=== PATIENT | female | born 1960 ===

== ENCOUNTER 2023-07-06 17:42 | Observation (INO) | payer MEDICARE, MEDICAID ==
[~2023-07-06] VITALS: Ht 157.5 cm; Wt 101.5 kg
[2023-07-06] MEDS ORDERED: BENZONATATE 100 MG CAPSULE PO PRN (18:30)
[2023-07-06] MEDS ORDERED: ENOXAPARIN 40 MG/0.4 ML SYRINGE SC SCH (18:30)
[2023-07-06] MEDS ORDERED: ONDANSETRON INJECTION 4 MG/2 ML (SDV) IV PRN (18:30)
[2023-07-06] MEDS ORDERED: PATIENT MAY USE OWN MEDS, ALL PO SCH (18:30)
[2023-07-06] MEDS ORDERED: ANTACID SUSPENSION 30 ML UDC PO PRN (18:30)
[2023-07-06] MEDS ORDERED: MELATONIN 3 MG TABLET PO PRN (18:30)
[2023-07-06] MEDS ORDERED: MILK OF MAGNESIA 400 MG/5 ML 30 ML UDC PO PRN (18:30)
[2023-07-06 21:20] VITALS: BP 148/65
[2023-07-06] MEDS: FUROSEMIDE INJECTION 40 MG/4 ML VIAL IV SCH (21:46)
[2023-07-06] MEDS: HYDROcodone/ACETAMINOPHEN 5 MG/325 MG TABLET PO PRN (22:53)
[2023-07-06] MEDS: HYDROCORTISONE 20 MG TABLET PO SCH (22:53)
[2023-07-06 23:40] VITALS: BP 149/82
[2023-07-07 03:30] VITALS: BP 123/79
[2023-07-07] MEDS: HYDROcodone/ACETAMINOPHEN 5 MG/325 MG TABLET PO PRN ×3 (03:39→20:12)
[2023-07-07 07:56] LABS: HEMATOCRIT 33 % (35-52); HEMOGLOBIN 10.7 g/dL (11.5-16.0); MEAN CORPUSCULAR HEMOGLOBIN 29 pg (25-34); MEAN CORPUSCULAR HGB CONC 32 g/dL (32-36); MEAN CORPUSCULAR VOLUME 90 fL (80-99); MEAN PLATELET VOLUME 10.2 fL (9.0-12.2); PLATELET COUNT 197 10^3/uL (130-400); WHITE BLOOD COUNT 5.9 10^3/uL (4.3-11.0)
[2023-07-07 08:08] LABS: ALBUMIN 3.1 GM/DL (3.2-4.5); POTASSIUM 3.8 MMOL/L (3.6-5.0)
[2023-07-07 08:10] LABS: CALCIUM 8.3 MG/DL (8.5-10.1)
[2023-07-07 08:11] LABS: TOTAL PROTEIN 5.6 GM/DL (6.4-8.2)
[2023-07-07 08:12] LABS: BILIRUBIN,TOTAL 0.4 MG/DL (0.1-1.0)
[2023-07-07 08:14] LABS: CREATININE SERUM 1.08 MG/DL (0.60-1.30)
[2023-07-07 08:25] VITALS: BP 132/78
--- NOTE | 2023-07-07 08:26 | Consultation-Cardiology ---
HPI-Cardiology Cardiology Consultation Date of Consultation 07/07/23 Date of Admission Time Seen by Provider: 08:20 Indication: Congestive heart failure HPI 63-year-old lady with history of congestive heart failure, was discharged from [facility] earlier this week after hospitalization for heart failure. Patient reporting that she had a stress test last month at [facility] and it did not show any ischemia did not require any cardiac catheterization, patient was diuresed and improved somewhat but continued to have some shortness of breath, return to the emergency room with increasing dyspnea, [facility] was on diversion and she was transferred to our hospital. Patient uses oxygen at home at night. Was hypoxemic. Reporting improvement in the pedal edema. No chest pain was reported Home Medications & Allergies Allergies: Coded Allergies: No Known Drug Allergies (Unverified , 07/07/23) Home Medication List Reviewed: Yes OLC-Dyegyv-Faqboy Hx Patient Social History Marital Status: single Smoking Status: Former Smoker Alcohol Use?: No Past Medical History Discussed below Family Medical History Significant Family History: No Pertinent Family Hx, Heart Disease Review of Systems-General Review of Systems Constitutional: no symptoms reported, see HPI, malaise EENTM: see HPI, no symptoms reported Respiratory: see HPI, cough, dyspnea on exertion; No hemoptysis; orthopnea; No phlegm; short of breath; No stridor, No wheezing, No other Cardiovascular: see HPI; No chest pain; edema; No Hx of Intervention, No palpitations, No syncope, No vascular heart diseas, No other Gastrointestinal: no symptoms reported, see HPI Genitourinary: no symptoms reported, see HPI Musculoskeletal: no symptoms reported, see HPI Skin: no symptoms reported, see HPI Psychiatric/Neurological: No Symptoms Reported, See HPI Reviewed Test Results Reviewed Test Results Lab Laboratory Tests Test 07/07/23 05:51 07/07/23 07:48 Range/Units Glucometer 79 70-110 MG/DL White Blood Count 5.9 4.3-11.0 10^3/uL Red Blood Count 3.68 L 3.80-5.11 10^6/uL Hemoglobin 10.7 L 11.5-16.0 g/dL Hematocrit 33 L 35-52 % Mean Corpuscular Volume 90 80-99 fL Mean Corpuscular Hemoglobin 29 25-34 pg Mean Corpuscular Hemoglobin Concent 32 32-36 g/dL Red Cell Distribution Width 13.5 10.0-14.5 % Platelet Count 197 130-400 10^3/uL Mean Platelet Volume 10.2 9.0-12.2 fL Sodium Level 138 135-145 MMOL/L Potassium Level 3.8 3.6-5.0 MMOL/L Chloride Level 104 98-107 MMOL/L Carbon Dioxide Level 27 21-32 MMOL/L Anion Gap 7 5-14 MMOL/L Blood Urea Nitrogen 24 H 7-18 MG/DL Creatinine 1.08 0.60-1.30 MG/DL Estimat Glomerular Filtration Rate 57 BUN/Creatinine Ratio 22 Glucose Level 88 70-105 MG/DL Calcium Level 8.3 L 8.5-10.1 MG/DL Corrected Calcium 9.0 8.5-10.1 MG/DL Total Bilirubin 0.4 0.1-1.0 MG/DL Aspartate Amino Transf (AST/SGOT) 10 5-34 U/L Alanine Aminotransferase (ALT/SGPT) 11 0-55 U/L Alkaline Phosphatase 73 40-136 U/L Troponin I 0.029 H <0.028 NG/ML Total Protein 5.6 L 6.4-8.2 GM/DL Albumin 3.1 L 3.2-4.5 GM/DL Physical Exam Physical Exam Vital Signs Vital Signs - First Documented 07/06/23 21:20 Temp 36.0 Pulse 60 Resp 18 B/P (MAP) 148/65 (92) Pulse Ox 97 O2 Delivery Nasal Cannula O2 Flow Rate 2.00 Capillary Refill : Height, Weight, BMI Height: '" Weight: lbs. oz. kg; 41.84 BMI Method: General Appearance: No Apparent Distress, WD/WN Eyes: Bilateral Eye Normal Inspection, Bilateral Eye PERRL, Bilateral Eye EOMI HEENT: PERRL/EOMI, TMs Normal, Normal ENT Inspection, Pharynx Normal, Moist Mucous Membranes Neck: Full Range of Motion, Normal Inspection, Non Tender, Supple, Carotid Bruit Respiratory: Chest Non Tender, Normal Breath Sounds, No Accessory Muscle Use, No Respiratory Distress Cardiovascular: Regular Rate, Rhythm, No Edema, No Gallop, No JVD, No Murmur, Normal Peripheral Pulses Gastrointestinal: Normal Bowel Sounds, No Organomegaly, No Pulsatile Mass, Non Tender, Soft Back: Normal Inspection, No CVA Tenderness, No Vertebral Tenderness Extremity: Normal Capillary Refill, Normal Inspection, Normal Range of Motion, Non Tender, No Calf Tenderness, No Pedal Edema Neurologic/Psychiatric: Alert, Oriented x3, No Motor/Sensory Deficits, Normal Mood/Affect Skin: Normal Color, Warm/Dry Lymphatic: No Adenopathy A/P-Cardiology Admission Diagnosis Shortness of breath Congestive heart failure Hypertension Hyperlipidemia Assessment/Plan Shortness of breath, congestive heart failure, patient had extensive workup done at [facility] I will try to obtain copy of the record Started on diuretics and monitor electrolytes closely. Restart home medication Patient reporting having stress test done at [facility] last month and rep orting that it was negative. Will try to obtain copy of the results Hypertension, restart home medication monitor blood pressure Hyperlipidemia, restart home medication and monitor lipids Diabetes mellitus, followed and managed by primary care physician Hypothyroidism, followed and managed by primary care physician COPD, oxygen dependent using oxygen at home Obesity, BMI 41 LUIS E SMITH MD Jul 07, 2023 08:26
[2023-07-07] MEDS: FUROSEMIDE INJECTION 40 MG/4 ML VIAL IV SCH ×2 (08:31→20:13)
[2023-07-07] MEDS: HYDROCORTISONE 20 MG TABLET PO SCH ×2 (08:31→20:11)
--- NOTE | 2023-07-07 09:01 | Diagnostic Imaging Report ---
INDICATION: Dyspnea and cough. PA and lateral chest obtained at 08:34 a.m. FINDINGS: Heart and mediastinal silhouette are normal in appearance. The lungs show no focal infiltrate. There is a trace of pleural fluid on both sides on the lateral view. IMPRESSION: No focal infiltrate. Trace bilateral pleural effusions. Dictated by: Dictated on workstation # [id number]
--- NOTE | 2023-07-07 09:48 | History & Physical-Hospitalist ---
History of Present Illness HPI/Chief Complaint Patient is a 63-year-old female past medical history of CHF, insulin- dependent diabetes, hypertension who presented to the ER duet o SOB. She was admitted at [facility] earlier this week for CHF and SOB and was DC-ed on 09/04. She states she was still short of breath when she left but was doing ok and when she got home she kept coughing and was hypoxic in the 80s prompting her to seek evaluation in the ER. She was found to have an elevated BNP of 5900 and mild troponin elevation (though stable for her over the last 5 checks). She was transferred her for cardiology evaluation. She reports doing a little better today but still coughing. She is currently off oxygen. She states the cough has been going on for over a week and has been tested for COVID and the flu multiple times and was negative. Source: patient Date Seen 07/07/23 Time Seen by a Provider: 09:00 Attending Physician No,Local Physician PCP Admitting Physician: Renny Altman MD Attending Physician: Renny Altman MD Referring Physician Date of Admission Jul 06, 2023 at 21:18 Home Medications & Allergies Home Medications Reviewed patient Home Medication Reconciliation performed by pharmacy medication reconciliations obstetrics technician and/or nursing. Patients Allergies have been reviewed. Allergies Allergies Coded Allergies No Known Drug Allergies (Lnjadqczvx90/30/23) Past Jnkjthv-Jsiqgt-Sofnlp Hx Patient Social History Marrital Status: single Tobacco Use?: No Smoking Status: Former Smoker Use of E-Cig and/or Vaping dev: No Substance use?: No Alcohol Use?: No Pt feels they are or have been: No Current Status status: No status: No Advance Directives: No Communicates: Verbally Primary Language: Niuean Preferred Spoken Language: Niuean Is interpretation needed?: No Sensory deficits: Vision impairment Implanted or Applied Medical D: None Family Medical History No Pertinent Family Hx, Heart Disease Review of Systems Constitutional: see HPI Physical Exam Physical Exam Vital Signs Vital Signs - First Documented 07/06/23 21:20 Temp 36.0 Pulse 60 Resp 18 B/P (MAP) 148/65 (92) Pulse Ox 97 O2 Delivery Nasal Cannula O2 Flow Rate 2.00 Capillary Refill : Height, Weight, BMI Height: '" Weight: lbs. oz. kg; 41.84 BMI Method: General Appearance: No Apparent Distress, Obese Respiratory: No Respiratory Distress; No Crackles; Decreased Breath Sounds; No Wheezing Cardiovascular: Regular Rate, Rhythm, No Murmur Gastrointestinal: Normal Bowel Sounds, Soft Extremity: No Calf Tenderness, No Pedal Edema Neurologic/Psychiatric: Alert, Oriented x3, Normal Mood/Affect Results Results/Procedures Labs Laboratory Tests 07/07/23 07:48 07/08/23 08:20 Patient resulted labs reviewed. Imaging: Reviewed Imaging Report Imaging [facility], [place] NAME: TONY ESPARZA MED REC#: [id number] PT STATUS: ADM Ortiz : 1960 PHYSICIAN: LUIS E SMITH MD ADMIT DATE: 07/06/23 Signed Date of Exam:07/07/23 CHEST PA/LAT (2 VIEW) INDICATION: Dyspnea and cough. PA and lateral chest obtained at 08:34 a.m. FINDINGS: Heart and mediastinal silhouette are normal in appearance. The lungs show no focal infiltrate. There is a trace of pleural fluid on both sides on the lateral view. IMPRESSION: No focal infiltrate. Trace bilateral pleural effusions. Dictated by: Dictated on workstation # [id number] Dict: 07/07/23 0859 Trans: 07/07/23 1039 [id number] Interpreted by: BLU CADENA MD Electronically signed by: BLU CADENA MD 07/07/23 1039 Assessment/Plan Admission Diagnosis CHF exacerbation Admission Status: Observation Assessment and Plan CHF exacerbation A-fib HTN Continue Lasix Cardiology consulted, appreciate recs Request records from [facility] Telemetry Wean oxygen as able Add Mucinex MAT protocol IDDMII HLD Hypothyroidism Continue home meds when med rec done DVT ppx: RENNY Boogie MD Jul 07, 2023 09:48
[2023-07-07] MEDS: ENOXAPARIN 40 MG/0.4 ML SYRINGE SC SCH ×2 (10:37→20:14)
[2023-07-07 11:55] VITALS: BP 139/67
[2023-07-07] MEDS ORDERED: guaiFENesin 600 MG TABLET PO NR (13:00)
[2023-07-07] MEDS: inSUlin ASPART 1 UNIT/0.01 ML (PER UNIT) SC SCH ×2 (16:12→20:14)
[2023-07-07] MEDS ORDERED: FURO40TA4 PO (16:14)
[2023-07-07] MEDS ORDERED: ONDA4TAB11 PO (16:14)
[2023-07-07] MEDS ORDERED: ASPI-1238 PO (16:14)
[2023-07-07] MEDS ORDERED: LEVO50TA6 PO (16:14)
[2023-07-07] MEDS ORDERED: PANT40TA52 PO (16:14)
[2023-07-07] MEDS ORDERED: ALLO100T PO (16:14)
[2023-07-07] MEDS ORDERED: DOXY100C5 PO (16:14)
[2023-07-07] MEDS ORDERED: CARV6.252 PO (16:14)
[2023-07-07] MEDS ORDERED: INSU300I SC (16:14)
[2023-07-07] MEDS ORDERED: SPIR25TA5 PO (16:14)
[2023-07-07] MEDS ORDERED: OXYC5TAB PO (16:14)
[2023-07-07] MEDS ORDERED: HYDR-4164 PO ×2 (16:14)
[2023-07-07] MEDS ORDERED: INSU100V SQ (16:14)
[2023-07-07] MEDS ORDERED: ATOR40TA70 PO (16:14)
[2023-07-07 16:21] VITALS: BP 130/61
[2023-07-07] MEDS ORDERED: oxyCODONE IMMEDIATE RELEASE 5 MG TABLET PO PRN (18:00)
[2023-07-07 19:52] VITALS: BP 142/70
[2023-07-07] MEDS: guaiFENesin 600 MG TABLET PO SCH (20:11)
[2023-07-07] MEDS: ASPIRIN enteric coated 81MG TABLET PO SCH (20:11)
[2023-07-07] MEDS: PANTOPRAZOLE 40 MG TABLET PO SCH (20:12)
[2023-07-07] MEDS ORDERED: HYDROCORTISONE 5 MG PO SCH (21:00)
[2023-07-07] MEDS: carvediloL 6.25 MG TABLET PO SCH (21:57)
[2023-07-07 23:34] VITALS: BP 123/73
[2023-07-08] MEDS: HYDROcodone/ACETAMINOPHEN 5 MG/325 MG TABLET PO PRN ×3 (02:17→20:36)
[2023-07-08 03:27] VITALS: BP 110/65
[2023-07-08] MEDS: inSUlin ASPART 1 UNIT/0.01 ML (PER UNIT) SC SCH ×4 (05:04→21:09)
[2023-07-08] MEDS: LEVOTHYROXINE 50 MCG TABLET PO SCH (05:04)
[2023-07-08 07:17] VITALS: BP 138/83
[2023-07-08 08:30] LABS: HEMATOCRIT 34 % (35-52); MEAN CORPUSCULAR HEMOGLOBIN 29 pg (25-34); MEAN CORPUSCULAR HGB CONC 33 g/dL (32-36); MEAN CORPUSCULAR VOLUME 88 fL (80-99); MEAN PLATELET VOLUME 9.9 fL (9.0-12.2); PLATELET COUNT 218 10^3/uL (130-400); WHITE BLOOD COUNT 5.6 10^3/uL (4.3-11.0)
[2023-07-08 08:40] LABS: POTASSIUM 3.5 MMOL/L (3.6-5.0)
[2023-07-08 08:41] LABS: CALCIUM 8.3 MG/DL (8.5-10.1)
[2023-07-08 08:45] LABS: CREATININE SERUM 1.06 MG/DL (0.60-1.30)
[2023-07-08] MEDS ORDERED: NON-FORMULARY MEDICATION 1 EA EA (Doxycycline Hyclate 100 MG) PO SCH (09:00)
[2023-07-08] MEDS ORDERED: NON-FORMULARY MEDICATION 1 EA EA (Hydrocortisone 10 MG) PO SCH (09:00)
[2023-07-08] MEDS: guaiFENesin 600 MG TABLET PO SCH ×2 (09:11→20:22)
[2023-07-08] MEDS: carvediloL 6.25 MG TABLET PO SCH ×2 (09:12→20:22)
[2023-07-08] MEDS: HYDROCORTISONE 20 MG TABLET PO SCH ×2 (09:12→20:22)
[2023-07-08] MEDS: SPIRONOLACTONE 25 MG TABLET PO SCH (09:12)
[2023-07-08] MEDS: FUROSEMIDE INJECTION 40 MG/4 ML VIAL IV SCH ×2 (09:12→20:22)
[2023-07-08] MEDS: PANTOPRAZOLE 40 MG TABLET PO SCH ×2 (09:12→20:22)
[2023-07-08] MEDS: ENOXAPARIN 40 MG/0.4 ML SYRINGE SC SCH ×2 (09:12→20:22)
[2023-07-08] MEDS: ALLOPURINOL 100 MG TABLET PO SCH (09:12)
--- NOTE | 2023-07-08 10:51 | Progress Note - Cardiology ---
Cardiology SOAP Progress Note Subjective: Lying in bed States her SOB is improving from yesterday C/O nausea which has been present "for a long time" No c/o CP or palpitations Objective: I&O/Vital Signs 07/07/23 07/08/23 07/08/23 07/08/23 23:34 00:25 03:27 06:24 Temp 36.3 36.2 Pulse 65 63 63 Resp 20 16 B/P (MAP) 123/73 (90) 110/65 (80) Pulse Ox 97 95 O2 Delivery Nasal Cannula Nasal Cannula Nasal Cannula O2 Flow Rate 2.00 2.00 2.00 2.00 2.00 07/08/23 07/08/23 07:00 07:17 Temp 36.0 Pulse 61 64 Resp 17 B/P (MAP) 138/83 (101) Pulse Ox 95 O2 Delivery Nasal Cannula O2 Flow Rate 2.00 07/07/23 23:59 Intake Total 1650 ml Output Total 2050 ml Balance -400 ml Constitutional: AAO x 3, well-developed, well-nourished Respiratory: No accessory muscle use, No respiratory distress; chest expansion is symmetric, chest is bilaterally symmetric, other (diminished bases bilat) Cardiovascular: regular rate-rhythm; No JVD; S1 and S2 Gastrointestional: No tender; soft; No guarding; audible bowel sounds Extremities: no lower extremity edema bilateral Neurologic/Psychiatric: other (moves all extremties) Skin: No rash on exposed areas, No ulcerations on exposed areas Results/Procedures: Labs Laboratory Tests 07/07/23 16:09: Glucometer 134H 07/07/23 19:37: Glucometer 127H 07/08/23 05:01: Glucometer 85 07/08/23 08:20: White Blood Count 5.6, Red Blood Count 3.80, Hemoglobin 11.0L, Hematocrit 34L, Mean Corpuscular Volume 88, Mean Corpuscular Hemoglobin 29, Mean Corpuscular Hemoglobin Concent 33, Red Cell Distribution Width 13.5, Platelet Count 218, Mean Platelet Volume 9.9, Sodium Level 138, Potassium Level 3.5L, Chloride Level 100, Carbon Dioxide Level 29, Anion Gap 9, Blood Urea Nitrogen 21H, Creatinine 1.06, Estimat Glomerular Filtration Rate 59, BUN/Creatinine Ratio 20, Glucose Level 97, Calcium Level 8.3L A/P: Assessment: Shortness of breath - CHF vs volume overload (BNP 267) - patient had extensive workup done at [facility] - records requested - Started on diuretics and monitor electrolytes closely Patient reporting having stress test done at [facility] last month and reporting that it was negative. Will try to obtain copy of the results Hypertension - controlled Hyperlipidemia - controlled Diabetes mellitus - followed and managed by primary care physician Hypothyroidism - followed and managed by primary care physician COPD - oxygen dependent using oxygen at home Obesity - BMI 41 Chronic nausea per pt report - undetermined etiology Plan: Notes from Dr. Wilkes reviewed Awaiting records from [facility] Continue current regimen Replace electrolytes as indicated Spoke with STEPHANIE Dickinson Jul 08, 2023 10:51
--- NOTE | 2023-07-08 12:05 | Progress Note - Hospitalist ---
Subjective HPI/CC On Admission Date Seen by Provider: Jul 08, 2023 Patient is a 63-year-old female past medical history of CHF, insulin- dependent diabetes, hypertension who presented to the ER duet o SOB. She was admitted at [facility] earlier this week for CHF and SOB and was DC-ed on 09/04. She states she was still short of breath when she left but was doing ok and when she got home she kept coughing and was hypoxic in the 80s prompting her to seek evaluation in the ER. She was found to have an elevated BNP of 5900 and mild troponin elevation (though stable for her over the last 5 checks). She was transferred her for cardiology evaluation. She reports doing a little better today but still coughing. She is currently off oxygen. She states the cough has been going on for over a week and has been tested for COVID and the flu multiple times and was negative. Subjective/Events-last exam Pt reports feeling better. Breathing better but still short of breath. Objective Exam Vital Signs Vital Signs Date Time Temp Pulse Resp B/P (MAP) Pulse Ox O2 Delivery O2 Flow Rate FiO2 07/08/23 07:17 36.0 64 17 138/83 (101) 95 Nasal Cannula 2.00 Capillary Refill : General Appearance: No Apparent Distress Respiratory: Lungs Clear Cardiovascular: Regular Rate, Rhythm, No Murmur Neurologic/Psychiatric: Alert, Oriented x3 Results/Procedures Lab Laboratory Tests 07/08/23 08:20 Patient resulted labs reviewed. Imaging: Reviewed Imaging Report Assessment/Plan Assessment and Plan Assess & Plan/Chief Complaint CHF exacerbation A-fib HTN Continue Lasix, -1600 yesterday Cardiology consulted, appreciate recs Request records from [facility] Wean oxygen as able- home oxygen study Continue Mucinex MAT protocol IDDMII HLD Hypothyroidism Continue home meds DVT ppx: RENNY Boogie MD Jul 08, 2023 12:05
[2023-07-08 12:26] VITALS: BP 121/68
[2023-07-08 15:48] VITALS: BP 137/69
--- NOTE | 2023-07-08 16:49 | Progress Note - Cardiology ---
Cardiology SOAP Progress Note Subjective: Short of breath Cough productive of small amounts of whitish sputum No cp except soreness of the chest with coughing bouts No palp or syncope No n/v/d Objective: I&O/Vital Signs 07/08/23 07/08/23 07/08/23 07/08/23 06:24 07:00 07:17 08:15 Temp 36.0 Pulse 61 64 Resp 17 B/P (MAP) 138/83 (101) Pulse Ox 95 O2 Delivery Nasal Cannula Nasal Cannula Nasal Cannula O2 Flow Rate 2.00 2.00 07/08/23 07/08/23 07/08/23 12:26 12:32 15:48 Temp 36.5 36.3 Pulse 52 49 55 Resp 17 16 B/P (MAP) 121/68 (85) 137/69 (91) Pulse Ox 96 96 O2 Delivery Nasal Cannula Nasal Cannula O2 Flow Rate 2.00 2.00 07/07/23 23:59 Intake Total 1650 ml Output Total 2050 ml Balance -400 ml Constitutional: AAO x 3, well-developed, well-nourished Respiratory: No accessory muscle use, No respiratory distress; chest expansion is symmetric, chest is bilaterally symmetric, other (diminished bases bilat) Cardiovascular: regular rate-rhythm; No JVD; S1 and S2 Gastrointestional: No tender; soft; No guarding; audible bowel sounds Extremities: no lower extremity edema bilateral Neurologic/Psychiatric: other (moves all extremties) Skin: No rash on exposed areas, No ulcerations on exposed areas Results/Procedures: Labs Laboratory Tests 07/07/23 19:37: Glucometer 127H 07/08/23 05:01: Glucometer 85 07/08/23 08:20: White Blood Count 5.6, Red Blood Count 3.80, Hemoglobin 11.0L, Hematocrit 34L, Mean Corpuscular Volume 88, Mean Corpuscular Hemoglobin 29, Mean Corpuscular Hemoglobin Concent 33, Red Cell Distribution Width 13.5, Platelet Count 218, Mean Platelet Volume 9.9, Sodium Level 138, Potassium Level 3.5L, Chloride Level 100, Carbon Dioxide Level 29, Anion Gap 9, Blood Urea Nitrogen 21H, Creatinine 1.06, Estimat Glomerular Filtration Rate 59, BUN/Creatinine Ratio 20, Glucose Level 97, Calcium Level 8.3L 07/08/23 15:51: Glucometer 134H Laboratory Tests 07/07/23 07:48 07/08/23 08:20 A/P: Assessment: Shortness of breath - CHF vs volume overload (BNP 267) - patient had extensive workup done at [facility] - records requested - Started on diuretics and monitor electrolytes closely Patient reporting having stress test done at [facility] last month and reporting that it was negative. Will try to obtain copy of the results Hypertension - controlled Hyperlipidemia - controlled Diabetes mellitus - followed and managed by primary care physician Hypothyroidism - followed and managed by primary care physician COPD - oxygen dependent using oxygen at home Obesity - BMI 41 Chronic nausea per pt report - undetermined etiology Plan: Notes from Dr. Wilkes reviewed Awaiting records from [facility] Continue current regimen Replace electrolytes as indicated ISAMAR CHOWDARY MD FACP FAC CCDS Jul 08, 2023 16:49
[2023-07-08] MEDS ORDERED: POTASSIUM CHLORIDE 20 MEQ TABLET PO NR (17:00)
[2023-07-08 19:27] VITALS: BP 109/64
[2023-07-08] MEDS: ASPIRIN enteric coated 81MG TABLET PO SCH (20:22)
[2023-07-08 23:10] VITALS: BP 128/63
[2023-07-09 03:13] VITALS: BP 113/58
[2023-07-09] MEDS: HYDROcodone/ACETAMINOPHEN 5 MG/325 MG TABLET PO PRN ×2 (03:23→18:28)
[2023-07-09] MEDS: inSUlin ASPART 1 UNIT/0.01 ML (PER UNIT) SC SCH ×4 (05:15→21:10)
[2023-07-09] MEDS: LEVOTHYROXINE 50 MCG TABLET PO SCH (05:56)
[2023-07-09 08:17] VITALS: BP 95/52
[2023-07-09] MEDS: PANTOPRAZOLE 40 MG TABLET PO SCH ×2 (08:40→20:28)
[2023-07-09] MEDS: guaiFENesin 600 MG TABLET PO SCH ×2 (08:40→20:28)
[2023-07-09] MEDS: SPIRONOLACTONE 25 MG TABLET PO SCH (08:40)
[2023-07-09] MEDS: ALLOPURINOL 100 MG TABLET PO SCH (08:40)
[2023-07-09] MEDS: FUROSEMIDE INJECTION 40 MG/4 ML VIAL IV SCH ×2 (08:41→21:10)
[2023-07-09] MEDS: carvediloL 6.25 MG TABLET PO SCH ×2 (08:41→20:28)
[2023-07-09] MEDS: HYDROCORTISONE 20 MG TABLET PO SCH ×2 (09:00→20:29)
[2023-07-09] MEDS: ENOXAPARIN 40 MG/0.4 ML SYRINGE SC SCH ×2 (10:00→20:28)
[2023-07-09] MEDS ORDERED: INSU300I SC (11:09)
--- NOTE | 2023-07-09 11:09 | Discharge Inst-Simple/Standard ---
Discharge Inst-Standard Patient Instructions/Follow Up Plan of Care/Instructions/FU: Please continue to take your medications as written. Please follow up with your primary care doctor to follow up this hospital stay. Activity as Tolerated: Yes Discharge Diet: Low Sodium Diet, Cardiac Diet Return to The Hospital For: Chest pain, shortness of breath, fever, weakness, if you feel you are getting worse. RENNY FIELDS MD Jul 09, 2023 11:09
--- NOTE | 2023-07-09 11:21 | Discharge Summary ---
Diagnosis/Chief Complaint Date of Admission Jul 06, 2023 at 21:18 Date of Discharge Discharge Date: Jul 09, 2023 Admission Diagnosis CHF exacerbation Primary Care No,Local Physician Discharge Summary Discharge Physical Exam Allergies: Coded Allergies: No Known Drug Allergies (Unverified , 07/07/23) Vitals & I&Os Vital Signs Date Time Temp Pulse Resp B/P (MAP) Pulse Ox O2 Delivery O2 Flow Rate FiO2 07/09/23 08:17 36.4 62 18 95/52 (66) 96 Room Air 07/09/23 08:00 2.00 General Appearance: No Apparent Distress Respiratory: Lungs Clear, No Respiratory Distress Cardiovascular: Regular Rate, Rhythm, No Murmur Neurologic/Psychiatric: Alert, Oriented x3 Hospital Course Patient was admitted to the hospital secondary to acute on chronic CHF exacerbation. She was recently admitted at outside hospital and discharged on the but returned to the ER on the for hypoxia and persistent shortness of breath. She was treated with IV diuretics. We requested records but unfortunately did not receive those. Currently she continued to improve with further diuresis. Cardiology was consulted and ordered an echo which showed . she was tested for oxygen and was found to have a 1L continuous seen and 2 L with exertion was arranged prior to discharge. She was discharged home in stable and improved condition to follow-up with her primary care physician and primary student success coach. Labs (last 24 hrs) Laboratory Tests 07/08/23 15:51: Glucometer 134H 07/08/23 19:18: Glucometer 177H 07/08/23 21:00: Glucometer 129H 07/09/23 04:57: Glucometer 114H Patient resulted labs reviewed. Pending Labs Laboratory Tests 07/09/23 04:57: Glucometer 114 Imaging: Reviewed Imaging Report Discussion & Recommendations Discharge Planning: >30 minutes discharge planning Discharge Home Medications: Active Scripts Active [place] Solostar (Insulin Glargine,Hum.rec.anlog) 300 Unit/Ml (1.5 Ml) Insuln.pen 28 Units SC HS 30 Days Your blood sugars have been well controlled in the hospital without this. Resume if blood sugars above 180 and follow up with your PCP. Reported Humalog (Insulin Lispro) 100 Unit/Ml Vial Unit SQ AC USES THE FOLLOWING SLIDING SCALE: 0-140=0 UNITS 141-180=8 UNITS 181-220=10 UNITS 221-260=12 UNITS 261-300=14 UNITS 301-340=16 UNITS 341-380=18 UNITS 381-400=20 UNITS Aspirin EC (Aspirin) 81 Mg Tablet.dr 81 Mg PO HS Hydrocortisone 10 Mg Tablet 5 Mg PO HS TAKES OF A 10MG Hydrocortisone 10 Mg Tablet 10 Mg PO DAILY Allopurinol 100 Mg Tablet 100 Mg PO DAILY Atorvastatin Calcium 40 Mg Tablet 40 Mg PO HS Carvedilol 6.25 Mg Tablet 6.25 Mg PO BID Furosemide 40 Mg Tablet 40 Mg PO BID Pantoprazole Sodium 40 Mg Tablet.dr 40 Mg PO BID Spironolactone 25 Mg Tablet 25 Mg PO DAILY Doxycycline Hyclate 100 Mg Capsule 100 Mg PO DAILY FILLED 07-01-2023 #05/17 DAY SUPPLY Ondansetron Odt (Ondansetron) 4 Mg Tab.rapdis 4 Mg PO Q8H PRN Oxycodone HCl 5 Mg Tablet 5 Mg PO Q8H PRN Levothyroxine Sodium 50 Mcg Tablet 50 Mcg PO DAILY Instructions to patient/family Please see electronic discharge instructions given to patient. RENNY FIELDS MD Jul 09, 2023 11:21
--- NOTE | 2023-07-09 12:07 | Progress Note - Cardiology ---
Cardiology SOAP Progress Note Subjective: Shortness of breath and gen malaise are modestly improved Leg swelling better Cough persistent (with small amounts of whitish sputum) No cp or palp or syncope Objective: I&O/Vital Signs 07/09/23 07/09/23 07/09/23 07/09/23 00:17 03:13 06:08 07:00 Temp 36.0 Pulse 47 59 50 Resp 16 B/P (MAP) 113/58 (76) Pulse Ox 95 O2 Delivery Nasal Cannula Nasal Cannula O2 Flow Rate 2.00 2.00 2.00 07/09/23 07/09/23 08:00 08:17 Temp 36.4 Pulse 62 Resp 18 B/P (MAP) 95/52 (66) Pulse Ox 96 96 O2 Delivery Nasal Cannula Room Air O2 Flow Rate 2.00 07/08/23 23:59 Intake Total 1860 ml Output Total 900 ml Balance 960 ml Constitutional: AAO x 3, well-developed, well-nourished Respiratory: No accessory muscle use, No respiratory distress; chest expansion is symmetric, chest is bilaterally symmetric, other (diminished bases bilat) Cardiovascular: regular rate-rhythm; No JVD; S1 and S2 Gastrointestional: No tender; soft; No guarding; audible bowel sounds Extremities: no lower extremity edema bilateral Neurologic/Psychiatric: other (moves all extremties) Skin: No rash on exposed areas, No ulcerations on exposed areas Results/Procedures: Labs Laboratory Tests 07/08/23 15:51: Glucometer 134H 07/08/23 19:18: Glucometer 177H 07/08/23 21:00: Glucometer 129H 07/09/23 04:57: Glucometer 114H 07/09/23 11:29: Glucometer 116H A/P: Assessment: Shortness of breath - CHF vs volume overload (BNP 267) - patient had extensive workup done at [facility] - records requested - Started on diuretics and monitor electrolytes closely Patient reporting having stress test done at [facility] last month and reporting that it was negative. Will try to obtain copy of the results Persistent cough of undetermined etiology: bronchitis vs heart failure Hypertension - controlled Hyperlipidemia - controlled Diabetes mellitus - followed and managed by primary care physician Hypothyroidism - followed and managed by primary care physician COPD - oxygen dependent using oxygen at home Obesity - BMI 41 Chronic nausea per pt report - undetermined etiology Plan: Echo Continue current regimen Awaiting records from [place] Monitor labs Replace electrolytes as indicated Discussed with ISAMAR Lopez MD [facility] CCDS Jul 09, 2023 12:07
[2023-07-09 12:16] VITALS: BP 126/58
[2023-07-09] MEDS ORDERED: POTASSIUM CHLORIDE 20 MEQ TABLET PO NR (12:30)
--- NOTE | 2023-07-09 13:22 | Progress Note - Hospitalist ---
Subjective HPI/CC On Admission Date Seen by Provider: Jul 09, 2023 Patient is a 63-year-old female past medical history of CHF, insulin- dependent diabetes, hypertension who presented to the ER duet o SOB. She was admitted at [place] earlier this week for CHF and SOB and was DC-ed on 09/04. She states she was still short of breath when she left but was doing ok and when she got home she kept coughing and was hypoxic in the 80s prompting her to seek evaluation in the ER. She was found to have an elevated BNP of 5900 and mild troponin elevation (though stable for her over the last 5 checks). She was transferred her for cardiology evaluation. She reports doing a little better today but still coughing. She is currently off oxygen. She states the cough has been going on for over a week and has been tested for COVID and the flu multiple times and was negative. Subjective/Events-last exam Pt reports feeling much better. No complaints. Breathing is better. Discussed with Dr Joy. he would like to monitor one more night prior to DC. Objective Exam Vital Signs Vital Signs Date Time Temp Pulse Resp B/P (MAP) Pulse Ox O2 Delivery O2 Flow Rate FiO2 07/09/23 12:30 51 07/09/23 12:16 36.1 18 126/58 (80) 97 Nasal Cannula 1.00 Capillary Refill : General Appearance: No Apparent Distress, WD/WN Respiratory: Lungs Clear, No Respiratory Distress Cardiovascular: Regular Rate, Rhythm, No Murmur Neurologic/Psychiatric: Alert, Oriented x3 Results/Procedures Lab Patient resulted labs reviewed. Imaging: Reviewed Imaging Report Assessment/Plan Assessment and Plan Assess & Plan/Chief Complaint CHF exacerbation A-fib HTN Continue Lasix, mildly positive yesterday but feeling better Cardiology consulted, appreciate recs Request records from [facility]- still awaiting records Telemetry Wean oxygen as able- home oxygen study with 1lpm continuous and 2lpm exertional need Continue Mucinex MAT protocol Echo ordered IDDMII HLD Hypothyroidism Continue home meds DVT ppx: RENNY Boogie MD Jul 09, 2023 13:22
[2023-07-09 15:33] VITALS: BP 108/52
[2023-07-09 19:24] VITALS: BP 111/59
[2023-07-09] MEDS: ASPIRIN enteric coated 81MG TABLET PO SCH (20:28)
[2023-07-09] MEDS ORDERED: diphenhydrAMINE 25 MG TABLET PO ONE (22:28)
[2023-07-09] MEDS ORDERED: diphenhydrAMINE 25 MG TABLET PO PRN ×2 (22:30→22:45)
[2023-07-09 23:54] VITALS: BP 126/70
[2023-07-10 03:56] VITALS: BP 124/76
[2023-07-10 05:54] LABS: ALBUMIN 3.1 GM/DL (3.2-4.5); POTASSIUM 4.2 MMOL/L (3.6-5.0)
[2023-07-10 05:55] LABS: CALCIUM 8.5 MG/DL (8.5-10.1)
[2023-07-10 05:57] LABS: TOTAL PROTEIN 5.5 GM/DL (6.4-8.2)
[2023-07-10 05:59] LABS: BILIRUBIN,TOTAL 0.3 MG/DL (0.1-1.0)
[2023-07-10] MEDS: inSUlin ASPART 1 UNIT/0.01 ML (PER UNIT) SC SCH ×2 (05:59→11:25)
[2023-07-10 06:00] LABS: CREATININE SERUM 1.49 MG/DL (0.60-1.30)
[2023-07-10 06:03] LABS: MAGNESIUM 1.8 MG/DL (1.6-2.4)
[2023-07-10] MEDS: LEVOTHYROXINE 50 MCG TABLET PO SCH (06:33)
[2023-07-10] MEDS ORDERED: POTASSIUM CHLORIDE 20 MEQ TABLET PO SCH (07:00)
[2023-07-10 07:27] VITALS: BP 132/65
[2023-07-10] MEDS: carvediloL 6.25 MG TABLET PO SCH (08:32)
[2023-07-10] MEDS: ALLOPURINOL 100 MG TABLET PO SCH (09:17)
[2023-07-10] MEDS: PANTOPRAZOLE 40 MG TABLET PO SCH (09:17)
[2023-07-10] MEDS: guaiFENesin 600 MG TABLET PO SCH (09:17)
[2023-07-10] MEDS: SPIRONOLACTONE 25 MG TABLET PO SCH (09:17)
[2023-07-10] MEDS: ENOXAPARIN 40 MG/0.4 ML SYRINGE SC SCH (09:17)
[2023-07-10] MEDS: HYDROCORTISONE 20 MG TABLET PO SCH ×2 (10:41→10:42)
[2023-07-10 12:01] VITALS: BP 123/69
--- NOTE | 2023-07-10 12:22 | Progress Note - Cardiology ---
Cardiology SOAP Progress Note Subjective: No cp or palp or syncope or shortness of breath at rest Cough much improved No n/v/d No focal weakness Gen weakness and malaise better Wants to go home Objective: I&O/Vital Signs 07/10/23 07/10/23 07/10/23 07/10/23 01:27 03:56 06:38 07:00 Temp 36.0 Pulse 50 59 51 Resp 16 B/P (MAP) 124/76 (92) Pulse Ox 96 O2 Delivery Nasal Cannula Nasal Cannula O2 Flow Rate 2.00 2.00 2.00 07/10/23 07/10/23 07:27 09:10 Temp 36.1 Pulse 57 Resp 18 B/P (MAP) 132/65 (87) Pulse Ox 95 96 O2 Delivery Nasal Cannula Nasal Cannula O2 Flow Rate 1.00 2.00 07/09/23 23:59 Intake Total 800 ml Output Total 1100 ml Balance -300 ml Constitutional: AAO x 3, well-developed, well-nourished Respiratory: No accessory muscle use, No respiratory distress; chest expansion is symmetric, chest is bilaterally symmetric, other (diminished bases bilat) Cardiovascular: regular rate-rhythm; No JVD; S1 and S2 Gastrointestional: No tender; soft; No guarding; audible bowel sounds Extremities: no lower extremity edema bilateral Neurologic/Psychiatric: other (moves all extremties) Skin: No rash on exposed areas, No ulcerations on exposed areas Results/Procedures: Labs Laboratory Tests 07/09/23 15:37: Glucometer 148H 07/09/23 20:39: Glucometer 136H 07/10/23 05:26: Sodium Level 137, Potassium Level 4.2, Chloride Level 99, Carbon Dioxide Level 29, Anion Gap 9, Blood Urea Nitrogen 30H, Creatinine 1.49H, Estimat Glomerular Filtration Rate 39, BUN/Creatinine Ratio 20, Glucose Level 127H, Calcium Level 8.5, Corrected Calcium 9.2, Magnesium Level 1.8, Total Bilirubin 0.3, Aspartate Amino Transf (AST/SGOT) 11, Alanine Aminotransferase (ALT/SGPT) 8, Alkaline Phosphatase 75, Total Protein 5.5L, Albumin 3.1L, Thyroid Stimulating Hormone (TSH) 0.64 Laboratory Tests 07/10/23 05:26 A/P: Assessment: Ac diastolic CHF - currently compensated - minimal troponin elevation (0.029) due to CHF (type 2 IL) - echo of 07/09/23: LVEF 55-60% w/o wall motion abnormalities, mild LAE, mild MAC, aortic valve sclerosis w/o stenosis, PASP could not be determined Patient reporting having stress test done at [facility] last month and reporting that it was negative, but we have not been able to obtain records from [facility] despite multiple requests Hypertension - controlled Hyperlipidemia - controlled Diabetes mellitus - followed and managed by primary care physician Hypothyroidism - followed and managed by primary care physician COPD - oxygen dependent using oxygen at home Obesity - BMI 41 Chronic nausea per pt report - undetermined etiology, managed by pcp Plan: * Some degree of pre-renal azotemia is likely due to intravenous diuretic therapy. We recommend changing to oral * Her symptoms are much improved / resolved and she insists on going home * CHF is clinically compensated. There is no evidence of type 1 IL. She already has a [facility] f[facility] that we have asked her to keep * We have advised f/u with pcp LUIS CARLOS and outpatient f/u on labs * We have advised to return to ER in case of recurrence of symptoms or new s ymptoms * She understands all of the above and states that she will comply ISAMAR CHOWDARY MD FACP [facility] Jul 10, 2023 12:22
--- NOTE | 2023-07-10 12:23 | Discharge Summary ---
Diagnosis/Chief Complaint Date of Admission Jul 06, 2023 at 21:18 Date of Discharge Discharge Date: Jul 10, 2023 Admission Diagnosis CHF exacerbation Primary Care No,Local Physician Discharge Summary Discharge Physical Exam Allergies: Coded Allergies: No Known Drug Allergies (Unverified , 07/07/23) Vitals & I&Os Vital Signs Date Time Temp Pulse Resp B/P (MAP) Pulse Ox O2 Delivery O2 Flow Rate FiO2 07/10/23 09:10 96 Nasal Cannula 2.00 07/10/23 07:27 36.1 57 18 132/65 (87) Hospital Course Labs (last 24 hrs) Laboratory Tests 07/09/23 15:37: Glucometer 148H 07/09/23 20:39: Glucometer 136H 07/10/23 05:26: Sodium Level 137, Potassium Level 4.2, Chloride Level 99, Carbon Dioxide Level 29, Anion Gap 9, Blood Urea Nitrogen 30H, Creatinine 1.49H, Estimat Glomerular Filtration Rate 39, BUN/Creatinine Ratio 20, Glucose Level 127H, Calcium Level 8.5, Corrected Calcium 9.2, Magnesium Level 1.8, Total Bilirubin 0.3, Aspartate Amino Transf (AST/SGOT) 11, Alanine Aminotransferase (ALT/SGPT) 8, Alkaline Phosphatase 75, Total Protein 5.5L, Albumin 3.1L, Thyroid Stimulating Hormone (TSH) 0.64 Patient resulted labs reviewed. Pending Labs Laboratory Tests 07/10/23 05:26: Sodium Level 137, Potassium Level 4.2, Chloride Level 99, Carbon Dioxide Level 29, Anion Gap 9, Blood Urea Nitrogen 30, Creatinine 1.49, Estimat Glomerular Filtration Rate 39, BUN/Creatinine Ratio 20, Glucose Level 127, Calcium Level 8.5, Corrected Calcium 9.2, Magnesium Level 1.8, Total Bilirubin 0.3, Aspartate Amino Transf (AST/SGOT) 11, Alanine Aminotransferase (ALT/SGPT) 8, Alkaline Phosphatase 75, Total Protein 5.5, Albumin 3.1, Thyroid Stimulating Hormone (TSH) 0.64 Imaging: Reviewed Imaging Report Discussion & Recommendations Discharge Planning: >30 minutes discharge planning Discharge Home Medications: Active Scripts Active [place] Solostar (Insulin Glargine,Hum.rec.anlog) 300 Unit/Ml (1.5 Ml) Insuln.pen 28 Units SC HS 30 Days Your blood sugars have been well controlled in the hospital without this. Resume if blood sugars above 180 and follow up with your PCP. Reported Humalog (Insulin Lispro) 100 Unit/Ml Vial Unit SQ AC USES THE FOLLOWING SLIDING SCALE: 0-140=0 UNITS 141-180=8 UNITS 181-220=10 UNITS 221-260=12 UNITS 261-300=14 UNITS 301-340=16 UNITS 341-380=18 UNITS 381-400=20 UNITS Aspirin EC (Aspirin) 81 Mg Tablet.dr 81 Mg PO HS Hydrocortisone 10 Mg Tablet 5 Mg PO HS TAKES OF A 10MG Hydrocortisone 10 Mg Tablet 10 Mg PO DAILY Allopurinol 100 Mg Tablet 100 Mg PO DAILY Atorvastatin Calcium 40 Mg Tablet 40 Mg PO HS Carvedilol 6.25 Mg Tablet 6.25 Mg PO BID Furosemide 40 Mg Tablet 40 Mg PO BID Pantoprazole Sodium 40 Mg Tablet.dr 40 Mg PO BID Spironolactone 25 Mg Tablet 25 Mg PO DAILY Doxycycline Hyclate 100 Mg Capsule 100 Mg PO DAILY FILLED 07-01-2023 #05/17 DAY SUPPLY Ondansetron Odt (Ondansetron) 4 Mg Tab.rapdis 4 Mg PO Q8H PRN Oxycodone HCl 5 Mg Tablet 5 Mg PO Q8H PRN Levothyroxine Sodium 50 Mcg Tablet 50 Mcg PO DAILY Instructions to patient/family Please see electronic discharge instructions given to patient. RENNY FIELDS MD Jul 10, 2023 12:23
[2023-07-10 14:00] VITALS: BP 123/69
== END 2023-07-10 12:22 | disposition home or self-care (01) ==
LOC: 4TH 21:10 → UNDOADMOB 21:18 → 4TH 21:18 → UNDODISOB 07-10 12:22
PROVIDERS: ADMIT Family Medicine; ATTEND Family Medicine
DX: I11.0 Hypertensive heart disease with heart failure (principal); I50.31 Acute diastolic (congestive) heart failure; I35.8 Other nonrheumatic aortic valve disorders; E78.5 Hyperlipidemia, unspecified; E11.9 Type 2 diabetes mellitus without complications; E03.9 Hypothyroidism, unspecified; J44.9 Chronic obstructive pulmonary disease, unspecified; E66.9 Obesity, unspecified; R11.0 Nausea; Z87.891 Personal history of nicotine dependence; Z79.899 Other long term (current) drug therapy; Z68.41 Body mass index [BMI] 40.0-44.9, adult; Z99.81 Dependence on supplemental oxygen; Z79.4 Long term (current) use of insulin; Z79.890 Hormone replacement therapy
CPT/HCPCS: 36415; 71046; 80048; 80053; 82947; 83735; 83880; 84443; 84484; 85027; 93005; 93306; 94760; 94761; 96372; 96374; 96376; G0378